=== PATIENT | male | born 1955 | race African-American/Black ===

== ENCOUNTER 2017-03-19 17:38 | Emergency (ER) | payer OTHER ==
[~2017-03-19] VITALS: Ht 170.2 cm; Wt 70.0 kg
[2017-03-19] MEDS ORDERED: ONDANSETRON HCL 4MG/2ML VIAL IV STA (18:18)
[2017-03-19] MEDS ORDERED: SODIUM CHLORIDE 0.9% 1,000 ML IV ONE (18:18)
[2017-03-19 19:08] LABS: BASOPHILS % 1.4 % (0.0-2.0); HEMATOCRIT. 35.5 % (42.0-52.0); HEMOGLOBIN. 12.3 g/dL (14.0-18.0); LYMPHOCYTES % 50.6 % (20.0-50.0); MEAN CORPUSCULAR VOLUME 95.3 fL (80.0-94.0); MEAN PLATELET VOLUME 6.3 fl (7.4-10.4); MONOCYTES % 6.9 % (2.0-8.0); NEUTROPHILS % 33.1 % (40.0-76.0); PLATELET 302 x1000/uL (130-400); RED BLOOD CELL COUNT 3.72 mill/uL (4.7-6.1); RED CELL DISTRIBUTION WIDTH 14.2 % (11.6-14.6)
[2017-03-19 19:13] LABS: CHLORIDE 102 mEq/L (98-107)
[2017-03-19 19:15] LABS: D-DIMER 0.8 mg/L FEU (<0.50); PROTHROMBIN TIME 10.4 sec
[2017-03-19 19:16] LABS: AMMONIA 33 uMol/L (<32)
[2017-03-19 19:18] LABS: CARBON DIOXIDE 27 mEq/L (21-32)
[2017-03-19 19:19] LABS: ETHANOL BLOOD < 10 mg/dL
[2017-03-19 19:25] LABS: CREATINE KINASE 95 IU/L (39-308); TROPONIN I < 0.02 ng/mL (0.00-0.04)
[2017-03-19 19:39] LABS: CLARITY URINE CLEAR (CLEAR); COLOR URINE YELLOW (YELLOW); GLUCOSE URINE NEGATIVE (NEGATIVE); KETONES URINE NEGATIVE (NEGATIVE); LEUKOCYTE ESTERASE URINE NEGATIVE (NEGATIVE); NITRITE URINE NEGATIVE (NEGATIVE); OCCULT BLOOD URINE NEGATIVE (NEGATIVE); PROTEIN URINE NEGATIVE (NEGATIVE); SPECIFIC GRAVITY URINE 1.034 (1.005-1.030); UROBILINOGEN URINE 0.2 E.U./dL (0.2-1.0)
[2017-03-19 19:51] LABS: *AMPHETAMINES SCREEN URINE NEGATIVE (NEGATIVE); *BARBITURATES SCREEN URINE NEGATIVE (NEGATIVE); *BENZODIAZEPINES SCREEN URINE PRESUMTIVE POSITIVE (NEGATIVE); *COCAINE SCREEN URINE NEGATIVE (NEGATIVE); CANNABINOID URINE SCREEN NEGATIVE (NEGATIVE); METHADONE URINE SCREEN NEGATIVE (NEGATIVE); OPIATES URINE SCREEN PRESUMTIVE POSITIVE (NEGATIVE); PHENCYCLIDINE URINE SCREEN NEGATIVE (NEGATIVE)
[2017-03-19 21:45] VITALS: BP 140/70
== END 2017-03-19 21:45 | disposition home or self-care (01) ==
LOC: ER 17:57 → CANBEDREQ 21:24 → ER 21:45
DX: R55 Syncope and collapse (principal); S09.90XA Unspecified injury of head, initial encounter; T42.4X1A Poisoning by benzodiazepines, accidental (unintentional), initial encounter; E86.0 Dehydration; I10 Essential (primary) hypertension; E78.00 Pure hypercholesterolemia, unspecified; F43.10 Post-traumatic stress disorder, unspecified; Z86.79 Personal history of other diseases of the circulatory system; W18.39XA Other fall on same level, initial encounter; Y93.89 Activity, other specified; Y92.89 Other specified places as the place of occurrence of the external cause; Y99.8 Other external cause status
CPT/HCPCS: 36415; 70450; 71010; 80053; 80305; 81003; 82140; 82550; 82962; 83605; 83880; 84443; 84484; 85025; 85379; 85610; 93005; 96361; 96374; 99285; G0482; J2405; J7030